=== PATIENT | female | born 1980 | race Caucasian/White ===

== ENCOUNTER → 2017-04-06 | Outpatient (CLI) | payer MEDICARE, BC ==
--- NOTE | 2017-04-07 08:27 | MM ---
Reason for exam: screening (asymptomatic). Baseline mammogram. History: Retro-pectoral saline implants in both breasts, 2007. Taking hormonal contraceptives for 13 years beginning at age 13. Physical Findings: Nurse did not find any significant physical abnormalities on exam. MG 3D Screen Mammo Imp/Cad Bilateral CC, MLO, and ID view(s) were taken. No prior studies available for comparison. The breast tissue is heterogeneously dense. This may lower the sensitivity of mammography. There is no discrete abnormality. Bilateral breast prothesis. These results were verbally communicated with the patient and result sheet given to the patient on 04/06/17. ASSESSMENT: Negative, BI-RAD 1 RECOMMENDATION: Routine screening mammogram of both breasts in 1 year.
== END | disposition home or self-care (01) ==
LOC: RADMAMWWP 12:53
PROVIDERS: ATTEND Obstetrics & Gynecology
DX: Z12.31 Encounter for screening mammogram for malignant neoplasm of breast (principal); Z98.82 Breast implant status
CPT/HCPCS: 77063; G0202

== ENCOUNTER → 2018-07-13 | Outpatient (CLI) | payer MEDICARE, BC ==
--- NOTE | 2018-07-14 13:38 | MM ---
Reason for exam: screening (asymptomatic). Last mammogram was performed 1 year and 3 months ago. History: Retro-pectoral saline implants in both breasts, 2008. Taking hormonal contraceptives for 13 years beginning at age 13. Physical Findings: A clinical breast exam by your physician is recommended on an annual basis and results should be correlated with mammographic findings. MG 3D Screen Mammo Imp/Cad Bilateral CC, MLO, and ID view(s) were taken. Prior study comparison: April 06, 2017, bilateral MG 3d screen mammo imp/cad. July 01, 2007, CAD bilateral diagnostic mammogram. The breast tissue is heterogeneously dense. This may lower the sensitivity of mammography. There is no discrete abnormality. Bilateral subpectoral implants redemonstrated. ASSESSMENT: Benign, BI-RAD 2 RECOMMENDATION: Routine screening mammogram of both breasts in 1 year.
== END ==
LOC: RADMAMWWP 10:10
PROVIDERS: ATTEND Obstetrics & Gynecology
DX: Z12.31 Encounter for screening mammogram for malignant neoplasm of breast (principal)
CPT/HCPCS: 77063; 77067

== ENCOUNTER → 2019-03-29 | Outpatient (CLI) | payer MEDICARE ==
--- NOTE | 2019-03-29 15:08 | MR ---
EXAMINATION TYPE: MR knee RT wo con DATE OF EXAM: 03/29/2019 COMPARISON: Radiographs of the right knee dated 03/21/2019 HISTORY: Rt. knee pain TECHNIQUE: Multiplanar, multisequence imaging of the right knee is performed without IV contrast. FINDINGS: MEDIAL MENISCUS: There is a very small radial tear of the posterior horn of the medial meniscus at it s free edge. Near the medial meniscus is unremarkable. LATERAL MENISCUS: Anterior and posterior horns are intact without tear. CRUCIATE LIGAMENTS: The anterior and posterior cruciate ligaments are intact. There is some increased signal of the insertional distal fibers of the distal biceps femoris. COLLATERAL LIGAMENTS: The medial collateral ligament and lateral collateral ligament complex are inta ct. Very mild increased signal is seen overlying the medial collateral ligament. EXTENSOR MECHANISM: Visualized quadriceps and patellar tendons are intact. EFFUSION: No significant suprapatellar joint effusion. POPLITEAL CYST: No popliteal/rodriguez cyst. TRICOMPARTMENT SPACES: No significant joint space narrowing. CARTILAGE: There is full-thickness cartilaginous loss of the patellar apex focally measuring 9 mm and within the medial facet cartilage as well as subchondral cystic change of the patellar apex extendin g into the lateral facet. Slight heterogeneity of the medial compartment cartilage is seen without fo ivania chondral defect. BONE MARROW SIGNAL: No focal abnormal marrow signal is appreciated. OTHER: Minimal nonspecific fat stranding is seen in the infrapatellar subcutaneous tissues. IMPRESSION: 1. Full-thickness cartilaginous defect of the patellar apex with underlying subchondral cystic format ion and chondral loss of the medial facet of the patella. Very mild chondromalacia of the medial comp artment is also seen without focal defect. 2. Very small radial tear of the posterior horn of the free edge of the medial meniscus. 3. Minimal increased signal of the insertional fibers of the distal biceps femoris May relate to mild tendinosis. 4. Subtle increased signal overlying the medial collateral ligament suggests very mild MCL bursitis.
== END | disposition home or self-care (01) ==
LOC: RADMRIMAIN 12:47
PROVIDERS: ATTEND Orthopaedic Surgery
DX: M94.261 Chondromalacia, right knee (principal); S83.241A Other tear of medial meniscus, current injury, right knee, initial encounter; M94.8X6 Other specified disorders of cartilage, lower leg; M85.661 Other cyst of bone, right lower leg

== ENCOUNTER → 2019-05-03 | Outpatient (CLI) | payer MEDICARE ==
[2019-05-03 12:21] LABS: Basophils % (A) 1 %; Eosinophils # (A) 0.1 k/uL (0-0.7); Eosinophils % (A) 2 %; HCT 37.2 % (34.0-46.0); HGB 12.5 gm/dL (11.4-16.0); Lymphocytes # (A) 1.8 k/uL (1.0-4.8); Lymphocytes % (A) 38 %; MCH 30.2 pg (25.0-35.0); MCHC 33.5 g/dL (31.0-37.0); MCV 90.2 fL (80.0-100.0); Mean Platelet Volume 6.9; Monocytes # (A) 0.3 k/uL (0-1.0); Monocytes % (A) 6 %; Neutrophils # (A) 2.4 k/uL (1.3-7.7); Neutrophils % (A) 51 %; Platelet Count 232 k/uL (150-450); RBC 4.13 m/uL (3.80-5.40); RDW 12.6 % (11.5-15.5); WBC 4.8 k/uL (3.8-10.6)
[2019-05-03 12:28] LABS: Potassium 4.2 mmol/L (3.5-5.1)
== END | disposition home or self-care (01) ==
LOC: LABPAT 11:55
PROVIDERS: ATTEND Orthopaedic Surgery
DX: Z01.812 Encounter for preprocedural laboratory examination (principal); M23.92 Unspecified internal derangement of left knee
CPT/HCPCS: 36415; 80051; 81025; 85025

== ENCOUNTER 2019-05-11 09:15 | Day surgery (SDC) | payer MEDICARE ==
[2019-05-09 13:29] VITALS: BMI 27.1
--- NOTE | 2019-05-10 14:07 | HP ---
HISTORY AND PHYSICAL Surgery is 05/11/2019 Tiffany Andrade is a 39-year-old patient seen with progressive right knee pain. Treatment options discussed. She elected to proceed with right knee arthroscopy. Consent was obtained. PAST MEDICAL HISTORY: Her past medical history is noncontributory. PAST SURGICAL HISTORY: Noncontributory. DAILY MEDICATIONS: None. ALLERGIES: None reported. SOCIAL HISTORY: She denies current tobacco use. PHYSICAL EXAMINATION: Physical evaluation of the right knee: Range of motion is full with +3 to 125 degrees. Mild effusion. Tenderness along the medial joint line. Positive medial Cam's. Ligaments stable. Hip rotation without pain. Distal neurovascular exam intact. Radiographs right knee mild osteoarthritic change. MRI right knee medial meniscal tear, patellar osteoarthritis. IMPRESSION: Internal derangement, right knee with medial meniscal tear. PLAN: Right knee arthroscopy with partial meniscectomy and debridement. MMODL / IJN: [id number] /
[~2019-05-11 09:15] MED LIST: DEXAMETHASONE SOD PHOSPHATE 10 MG/ML 1 ML VIAL IV ONE; HYDROmorphone 0.5 MG/0.5 ML SYRINGE IVP PRN; LACTATED RINGERS 1,000 ML IV SCH; LIDOCAINE 1% 20 ML VIAL (10MG/ML) FOR IV START INTRADERMA PRN; ONDANSETRON 4 MG/2 ML VIAL IVP ONE; SCOPOLAMINE 1.5MG/72HR PATCH TRANSDERM ONE
[2019-05-11] MEDS ORDERED: MIDAZOLAM 2 MG/2 ML VIAL ONE (10:36)
[2019-05-11] MEDS ORDERED: PROPOFOL 10 MG/ML 20 ML VIAL IV ONE (10:36)
[2019-05-11] MEDS ORDERED: SUCCINYLCHOLINE CHLORIDE 100 MG/5 ML SYR IV ONE (10:36)
[2019-05-11] MEDS ORDERED: ePHEDrine SULFATE/0.9% NACL/PF 50 MG/5 ML SYRINGE IV ONE (10:36)
[2019-05-11] MEDS ORDERED: fentaNYL (PF) 50 MCG/ML 2 ML AMP ONE (10:36)
[2019-05-11] MEDS ORDERED: LIDOCAINE 1% INJ 10MG/ML (20 ML MDV) ONE (10:36)
[2019-05-11] MEDS ORDERED: BUPIVACAINE (PF) 0.25% 30 ML VIAL SQ ONE (11:13)
--- NOTE | 2019-05-11 11:30 | P.OP ---
Date of Procedure: 05/11/19 Preoperative Diagnosis: Internal derangement right knee Postoperative Diagnosis: 1. Tear medial meniscus right knee 2. Grade 2 chondromalacia patella right knee 3. Reactive synovitis medial, lateral and suprapatellar compartments right knee Procedure(s) Performed: 1. Arthroscopic partial medial meniscectomy right knee 2. Arthroscopic chondroplasty patella right knee 3. Arthroscopic partial synovectomy medial, lateral and suprapatellar compartments right knee Anesthesia: TAHIRA, local Surgeon: Bernardo Lizama Estimated Blood Loss (ml): 5 Pathology: none sent Condition: stable Disposition: PACU Indications for Procedure: 39-year-old patient seen with progressive right knee after treatment options discussed, she elected to proceed with arthroscopy. Operative Findings: See description of procedure Description of Procedure: Patient was taken to the operative suite. Patient underwent a general anesthetic by the department of anesthesia. Patient was given preoperative antibiotics. The right lower extremity was placed in a well-padded arthroscopic leg dominguez. The right leg was prepped and draped in the normal sterile orthopedic fashion. A lateral parapatellar and suprapatellar incision was made. Trochars were inserted. Arthroscopy was initiated. Suprapatellar pouch revealed diffuse thick reactive synovitis. The patellofemoral joint appeared to articulate congruently. There was grade 2 chondromalacia patella with some diffuse osteochondral tears present. This mainly involving the medial facet.. The scope was guided into the medial gutter. No loose bodies or plica were identified. The scope was then guided into the medial compartment. A medial parapatellar incision was made. Trocar inserted followed by probe. There was a small radial tear posterior medial meniscus. There was very mild grade 1 chondromalacia medial compartment. There was no osteochondral tears present. There was reactive synovitis anteriorly. I performed a partial medial meniscectomy down to stable tissue. I performed a partial synovectomy decompressing the reactive synovitis. The residual meniscus appeared stable. Scope and probe were then guided into the intercondylar notch. Cruciates were identified, probed and found to be stable. The scope and probe were then guided into lateral compartment. Meniscus was probed and found to be stable. There was no chondromalacia present. There was reactive synovitis anteriorly. I performed a partial synovectomy. There was good decompression of synovitis. The scope was in guided back into the suprapatellar compartment. I introduced a motorized shaver into the super patellar compartment. I performed a chondroplasty of patella down to stable tissue. I performed a partial synovectomy. The shaver was removed. The residual osteochondral surface of patella. Stable. There was grade 2/3 chondromalacia but the osteochondral surface was at this point stable. There was good decompression of synovitis. I took one more look on the entire knee, no residual debris. Instruments were now removed from the joint. The joint was infiltrated with .25% Marcaine. Steri- Strips were applied to the portal sites. Sterile dressings were applied. The patient was placed into a GISELA hose. No tourniquet was utilized. The patient was awakened, transferred to a bed and taken to recovery stable satisfactory condition.
[2019-05-11 11:39] VITALS: RESP 16; TEMP 97.3
[2019-05-11 12:35] VITALS: BP 113/73; PULSE 78
== END 2019-05-11 12:43 | disposition home or self-care (01) ==
LOC: OR 09:15
PROVIDERS: ATTEND Orthopaedic Surgery
DX: M23.321 Other meniscus derangements, posterior horn of medial meniscus, right knee (principal); M22.41 Chondromalacia patellae, right knee; M65.861 Other synovitis and tenosynovitis, right lower leg; K21.9 Gastro-esophageal reflux disease without esophagitis
CPT/HCPCS: 81025; 29881; J2250; J1100; J2405; J0690; J2001; J3010; J0330; J2704

== ENCOUNTER → 2019-12-20 | Outpatient (CLI) | payer MEDICARE ==
--- NOTE | 2019-12-21 11:27 | MR ---
EXAMINATION TYPE: MR knee LT wo con DATE OF EXAM: 12/20/2019 COMPARISON: 12/13/2019 HISTORY: 39-year-old female Pain in left knee TECHNIQUE: Multiplanar, multisequence imaging of the left knee is performed without IV contrast. FINDINGS: ACL, PCL, MCL, and LCL complex are intact. Lateral meniscus is intact. There is a multilocular ganglion cyst along the anteromedial aspect of the medial tibial plateau otilia uring 1.1 cm wide by 2.2 cm craniocaudal by 8 mm AP. This is highly suggestive of a parameniscal cyst probably arising from a tiny peripheral tear at the junction of the meniscal body and anterior horn. Bicompartmental articular cartilage volumes are maintained. Mild diffuse thinning of patellar articular cartilage with moderate focal irregular cartilage loss al maral the medial patellar facet and some reactive subchondral signal change. Extensor mechanism is intact. Physiologic joint fluid. No Guidry's cyst. Normal popliteal artery anatomy and muscle bulk. No suspicious bone marrow replacement. IMPRESSION: 1. A 2.2 cm multilocular ganglion cyst along the anteromedial aspect of the tibial plateau. Suspect t hat this represents a parameniscal cyst arising from a tiny peripheral tear at the junction of the an terior horn and body of the medial meniscus. 2. Moderate focal osteoarthritic change along the medial patellar facet.
== END | disposition home or self-care (01) ==
LOC: RADMRIMAIN 14:40
PROVIDERS: ATTEND Orthopaedic Surgery
DX: M17.12 Unilateral primary osteoarthritis, left knee (principal); M67.462 Ganglion, left knee

== ENCOUNTER → 2020-02-29 | Outpatient (CLI) | payer MEDICARE | END | disposition home or self-care (01) | LOC: LABWHC1 07:06 | PROVIDERS: ATTEND Orthopaedic Surgery | DX: Z53.9 Procedure and treatment not carried out, unspecified reason (principal) ==

== ENCOUNTER 2020-03-01 14:28 | Day surgery (SDC) | payer MEDICARE ==
[2020-02-29 10:05] VITALS: BMI 27.3
--- NOTE | 2020-03-01 09:15 | HP ---
HISTORY AND PHYSICAL DATE OF SERVICE: 03/01/2020 Tiffany Andrade is a 39-year-old patient seen with progressive left knee pain. We discussed options for treatment. She elected to proceed with arthroscopy. Consent was obtained. PAST MEDICAL HISTORY: Noncontributory. PAST SURGICAL HISTORY: Right knee arthroscopy. DAILY MEDICATIONS: Multivitamin. ALLERGIES: None. SOCIAL HISTORY: She denies tobacco use. PHYSICAL EVALUATION OF THE LEFT KNEE: Range of motion is 0-130. Mild effusion. Tenderness medial joint line. Positive medial Cam's. Crepitus patellofemoral joint. Ligaments stable. Hip rotation without pain. Distal neurovascular exam is intact. RADIOGRAPHS OF THE LEFT KNEE: Revealed mild osteoarthritis. MRI left knee revealed medial meniscal tear. Parameniscal cyst and osteoarthritis. IMPRESSION: 1. Internal derangement, left knee with medial meniscal tear. 2. Left knee osteoarthritis. PLAN: Left knee arthroscopy with partial meniscectomy and partial synovectomy and debridement. MMODL / IJN: [id number] /
[2020-03-01 15:28] LABS: Basophils # (A) 0.1 k/uL (0-0.2); Basophils % (A) 1 %; Eosinophils # (A) 0.1 k/uL (0-0.7); Eosinophils % (A) 2 %; Lymphocytes % (A) 32 %; MCH 30.2 pg (25.0-35.0); MCHC 33.4 g/dL (31.0-37.0); MCV 90.5 fL (80.0-100.0); Mean Platelet Volume 6.9; Monocytes # (A) 0.2 k/uL (0-1.0); Monocytes % (A) 3 %; Neutrophils # (A) 3.7 k/uL (1.3-7.7); Neutrophils % (A) 60 %; Platelet Count 246 k/uL (150-450); RBC 4.31 m/uL (3.80-5.40); RDW 12.2 % (11.5-15.5); WBC 6.2 k/uL (3.8-10.6)
[2020-03-01] MEDS ORDERED: LACTATED RINGERS 1,000 ML IV ONE (15:36)
[2020-03-01 15:37] LABS: African American GFR (CKD) >90 (>60 ml/min/1.73 sqM); Anion Gap 9 mmol/L; Blood Urea Nitrogen 16 mg/dL (7-17); Calcium 9.7 mg/dL (8.4-10.2); Carbon Dioxide 23 mmol/L (22-30); Chloride 106 mmol/L (98-107); Glucose 86 mg/dL (74-99); Non-African American GFR(CKD) >90 (>60 ml/min/1.73 sqM); Potassium 3.9 mmol/L (3.5-5.1); Sodium 138 mmol/L (137-145)
[2020-03-01] MEDS ORDERED: DEXAMETHASONE SOD PHOS (MDV) 100 MG/10 ML VIAL IVP ONE (15:37)
[2020-03-01] MEDS ORDERED: ONDANSETRON 4 MG/2 ML VIAL IVP ONE (15:37)
[2020-03-01] MEDS ORDERED: SUCCINYLCHOLINE CHLORIDE 100 MG/5 ML SYR IV ONE (17:12)
[2020-03-01] MEDS ORDERED: PROPOFOL 10 MG/ML 20 ML VIAL IV ONE (17:12)
[2020-03-01] MEDS ORDERED: fentaNYL (PF) 50 MCG/ML 2 ML AMP ONE (17:12)
[2020-03-01] MEDS ORDERED: MIDAZOLAM 2 MG/2 ML VIAL ONE (17:12)
[2020-03-01] MEDS ORDERED: LIDOCAINE 1% INJ 10MG/ML (20 ML MDV) ONE (17:12)
[2020-03-01] MEDS ORDERED: BUPIVACAIN-EPI 0.25%-1:200,000 30 ML VIAL SQ ONE ×2 (17:24)
--- NOTE | 2020-03-01 18:01 | P.OP ---
Date of Procedure: 03/01/20 Preoperative Diagnosis: Internal derangement left knee Postoperative Diagnosis: 1. Tear lateral meniscus left knee 2. Grade 2 chondromalacia patella left knee 3. Reactive synovitis medial, lateral and suprapatellar compartments left knee Procedure(s) Performed: 1. Arthroscopic partial lateral meniscectomy left knee 2. Arthroscopic chondroplasty patella left knee 3. Arthroscopic partial synovectomy medial, lateral and suprapatellar compartments left knee Anesthesia: JOAN, local Surgeon: Bernardo Lizama Principle Software Engineer #1: Ramón Tavares Estimated Blood Loss (ml): 4 Pathology: none sent Condition: stable Disposition: PACU Indications for Procedure: 39-year-old patient seen with progressive left knee pain. After treatment options were discussed, she elected to proceed with arthroscopy. Operative Findings: See description of procedure Description of Procedure: Patient was taken to the operative suite. Patient underwent a general anesthetic by the department of anesthesia. Patient was given preoperative antibiotics. The left lower extremity was placed in a well-padded arthroscopic leg dominguez. The left leg was prepped and draped in the normal sterile orthopedic fashion. A lateral parapatellar and suprapatellar incision was made. Trochars were inserted. Arthroscopy was initiated. Suprapatellar pouch revealed diffuse thick reactive synovitis. The patellofemoral joint appeared to articulate congruently. There was grade 2 chondromalacia patella with diffuse osteochondral tears present. The scope was guided into the medial gutter. No loose bodies or plica were identified. The scope was then guided into the medial compartment. A medial parapatellar incision was made. Trocar inserted followed by probe. The medial meniscus was probed and found to be stable. Ther e was no significant chondromalacia involving medial compartment. There was some thick reactive synovitis anteriorly. I introduced a motorized shaver and performed a partial synovectomy. There was good decompression of synovitis. Scope and probe were then guided into the intercondylar notch. Cruciates were identified, probed and found to be table. The scope and probe were then guided into lateral compartment. The was a small radial tear involving the midbody lateral meniscus. There was no smoking chondromalacia lateral compartment. There was thick reactive synovitis anteriorly. I performed a partial lateral meniscectomy. I performed a partial synovectomy. There was good decompression of the synovitis. The scope was in guided back into the suprapatellar compartment. I introduced the motorized shaver into the super compartment. I performed a chondroplasty of the patella getting down to stable osteochondral tissue. I performed a partial synovectomy decompressing the thick reactive synovitis. The shaver was removed. I reintroduced the probe. I probed the patella and the residual osteochondral surface was stable. The probe was removed. I took one more look on the entire knee, no residual debris. Instruments were now removed from the joint. The joint was infiltrated with .25% Marcaine. Steri-Strips were applied to the portal sites. Sterile dressings were applied. The patient was placed into a GISELA hose. No tourniquet was utilized. The patient was awakened, transferred to a bed and taken to recovery stable satisfactory condition.
[2020-03-01 18:15] VITALS: TEMP 98
[2020-03-01 18:26] VITALS: RESP 18
[2020-03-01] MEDS ORDERED: KETOROLAC 30 MG/ML 1 ML VIAL IVP ONE (18:32)
[2020-03-01 19:02] VITALS: BP 128/74; PULSE 81
== END 2020-03-01 19:14 | disposition home or self-care (01) ==
LOC: OR 14:28
PROVIDERS: ATTEND Orthopaedic Surgery
DX: S83.242A Other tear of medial meniscus, current injury, left knee, initial encounter (principal); X58.XXXA Exposure to other specified factors, initial encounter; M22.42 Chondromalacia patellae, left knee; M65.862 Other synovitis and tenosynovitis, left lower leg; M17.12 Unilateral primary osteoarthritis, left knee; K21.9 Gastro-esophageal reflux disease without esophagitis; Z79.1 Long term (current) use of non-steroidal anti-inflammatories (NSAID); Z88.5 Allergy status to narcotic agent
CPT/HCPCS: 29881; 29876; 80048; 85025; 87635; J2405; J1885; J1100

== ENCOUNTER → 2020-05-14 | Outpatient (CLI) | payer MEDICARE ==
--- NOTE | 2020-05-15 09:57 | MM ---
Reason for exam: screening (asymptomatic). Last mammogram was performed 1 year and 10 months ago. History: Retro-pectoral saline implants in both breasts, 2008. Took hormonal contraceptives for 13 years beginning at age 13. Physical Findings: A clinical breast exam by your physician is recommended on an annual basis and results should be correlated with mammographic findings. MG 3D Screen Mammo Imp/Cad Bilateral CC, MLO, and ID view(s) were taken. Prior study comparison: July 13, 2018, bilateral MG 3d screen mammo imp/cad. April 06, 2017, bilateral MG 3d screen mammo imp/cad. The breast tissue is heterogeneously dense. This may lower the sensitivity of mammography. No significant changes when compared with prior studies. ASSESSMENT: Benign, BI-RAD 2 RECOMMENDATION: Routine screening mammogram of both breasts in 1 year.
== END | disposition home or self-care (01) ==
LOC: RADMAMWWP 13:40
PROVIDERS: ATTEND Obstetrics & Gynecology
DX: Z12.31 Encounter for screening mammogram for malignant neoplasm of breast (principal)
CPT/HCPCS: 77063; 77067

== ENCOUNTER → 2020-08-22 | Outpatient (CLI) | payer MEDICARE ==
--- NOTE | 2020-08-25 15:26 | MR ---
EXAMINATION TYPE: MR knee LT wo con DATE OF EXAM: 08/22/2020 COMPARISON: Prior MRI December 20, 2019 HISTORY: Left knee pain, menisectomy February 2020. TECHNIQUE: Multiplanar, multisequence imaging of the left knee is performed without IV contrast. FINDINGS: MEDIAL MENISCUS: Anterior and posterior horns are intact without tear. Interval surgical removal of t he parameniscal cyst aligned medial aspect of the meniscus on prior study. LATERAL MENISCUS: Anterior and posterior horns are intact without tear. CRUCIATE LIGAMENTS: Posterior cruciate ligament remains intact and unremarkable. Anterior cruciate li gament shows new increased signal and partial tearing midsubstance. COLLATERAL LIGAMENTS: The medial collateral ligament and lateral collateral ligament complex are inta ct and unremarkable. EXTENSOR MECHANISM: Visualized quadriceps and patellar tendons are intact. EFFUSION: Small suprapatellar joint effusion larger from prior.. POPLITEAL CYST: No popliteal/rodriguez cyst. TRICOMPARTMENT SPACES: Mild to moderate narrowing patellofemoral compartment. No significant spurring . CARTILAGE: Stable mild fissuring and cartilaginous loss posterior patellar pole greatest medial infer ior aspect. BONE MARROW SIGNAL: No focal abnormal marrow signal is appreciated. OTHER: No additional significant abnormality is appreciated. IMPRESSION: Interval successful resection of parameniscal cyst, no new meniscal tear identified. Ther e is new partial oblique tear of the anterior cruciate ligament without full-thickness tear. Stable m ild to moderate patellofemoral joint arthropathy. Small suprapatellar joint effusion slightly larger from prior.
== END | disposition home or self-care (01) ==
LOC: RADMRIMAIN 13:17
PROVIDERS: ATTEND Orthopaedic Surgery
DX: M25.862 Other specified joint disorders, left knee (principal); S83.512A Sprain of anterior cruciate ligament of left knee, initial encounter; M12.862 Other specific arthropathies, not elsewhere classified, left knee; M25.462 Effusion, left knee

== ENCOUNTER → 2020-10-16 | Outpatient (CLI) | payer MEDICARE | END | disposition home or self-care (01) | DX: Z53.9 Procedure and treatment not carried out, unspecified reason (principal) ==

== ENCOUNTER → 2020-10-16 | Outpatient (CLI) | payer MEDICARE ==
[2020-10-16 09:09] LABS: Appearance,Urine Clear (Clear); Bilirubin,Urine Negative (Negative); Blood,Urine Negative (Negative); Color,Urine Light Yellow; Glucose,Urine (UA) Negative (Negative); Ketones,Urine Negative (Negative); Leukocyte Esterase,Urine Negative (Negative); Nitrite,Urine Negative (Negative); PH, Urine 5.5 (5.0-8.0); Protein,Urine Negative (Negative); Urobilinogen,Urine <2.0 mg/dL (<2.0)
[2020-10-16 09:10] LABS: Basophils % (A) 1 %; Eosinophils # (A) 0.1 k/uL (0-0.7); Eosinophils % (A) 2 %; HGB 12.4 gm/dL (11.4-16.0); Lymphocytes # (A) 1.9 k/uL (1.0-4.8); Lymphocytes % (A) 35 %; MCH 31.2 pg (25.0-35.0); MCHC 34.5 g/dL (31.0-37.0); MCV 90.4 fL (80.0-100.0); Monocytes # (A) 0.3 k/uL (0-1.0); Monocytes % (A) 5 %; Neutrophils # (A) 3.1 k/uL (1.3-7.7); Neutrophils % (A) 57 %; Platelet Count 234 k/uL (150-450); RBC 3.99 m/uL (3.80-5.40); RDW 12.7 % (11.5-15.5); WBC 5.4 k/uL (3.8-10.6)
[2020-10-16 15:04] LABS: Prolactin 10.3 ng/mL (2.8-29.2)
[2020-10-16 15:05] LABS: Estradiol 175.9 pg/mL; Follicle Stimulating Hormone 27.4 mIU/mL; Luteinizing Hormone 32.3 mIU/mL
[2020-10-16 15:11] LABS: HCG,Quantitative Serum <2.0 mIU/mL
[2020-10-16 15:13] LABS: African American GFR (CKD) 123.9 (60.0-200.0); Albumin 4.4 g/dL (3.80-4.90); Albumin/Globulin Ratio 2.2 (1.60-3.17); Anion Gap 6.2 mmol/L (4.00-12.00); BUN/Creat Ratio 22.86 Ratio (12.00-20.00); Calcium 9.2 mg/dL (8.7-10.3); Carbon Dioxide 28.8 mmol/L (21.6-31.8); Non-African American GFR(CKD) 106.9 (60.0-200.0); Potassium 4.1 mmol/L (3.5-5.5); Total Bilirubin 0.7 mg/dL (0.2-1.2); Total Protein 6.4 g/dL (6.2-8.2)
[2020-10-16 17:25] LABS: Hemoglobin A1C 4.7 % (4.0-6.0)
[2020-10-16 19:23] LABS: EBV-EA (IgG) <0.2 AI; EBV-EBNA(IgG) 1.1 AI; EBV-VCA (IgG) >8.0 AI; EBV-VCA (IgM) >4.0 AI
== END | disposition home or self-care (01) ==
LOC: LABWHC1 07:59
PROVIDERS: ATTEND Obstetrics & Gynecology
DX: Z00.00 Encounter for general adult medical examination without abnormal findings (principal); R53.83 Other fatigue; R73.9 Hyperglycemia, unspecified; G43.909 Migraine, unspecified, not intractable, without status migrainosus; N91.2 Amenorrhea, unspecified
CPT/HCPCS: 36415; 80053; 81003; 82670; 83001; 83002; 83036; 84146; 84439; 84443; 84479; 84702; 85025; 86663; 86664; 86665

== ENCOUNTER → 2020-10-31 | Day surgery (SDC) | payer MEDICARE ==
[2020-10-24 10:15] VITALS: BMI 28.1
--- NOTE | 2020-10-30 14:26 | HP ---
HISTORY AND PHYSICAL Surgery is scheduled for 10/31/2020. Tiffany Andrade is a 40-year-old patient seen with progressive left knee pain. We discussed options with her. She elected to proceed with arthroscopy. Consent was obtained. PAST MEDICAL HISTORY: Noncontributory. PAST SURGICAL HISTORY: Bilateral knee arthroscopy. DAILY MEDICATIONS: Multivitamin. ALLERGIES: None. SOCIAL HISTORY: She denies tobacco use. PHYSICAL EXAMINATION: Physical evaluation of the left knee: Range of motion is 0-130. She has some tenderness along the lateral patellar facet, medial patellar facet. Plus one Kurt with good endpoint. Patellar crepitus with range of motion. Some pain with patellofemoral compression. Ligaments stable. Hip rotation without pain. Distal neurovascular exam intact. Radiographs of the left knee revealed no osseous abnormality. MRI of the left knee revealed a partial ACL tear as well as mild to moderate patellofemoral compartment osteoarthritis. IMPRESSION: Internal derangement left knee with probable osteochondral tear and partial ACL tear. PLAN: Left knee arthroscopy with debridement, partial ACL tear and probable chondroplasty. MMODL / IJN: [id number] /
[~2020-10-31] MED LIST changes: +BUPIVACAINE (PF) 0.25% 30 ML VIAL INTRAARTIC ONE; -DEXAMETHASONE SOD PHOSPHATE 10 MG/ML 1 ML VIAL IV ONE; +DEXAMETHASONE SOD PHOSPHATE 10 MG/ML 1 ML VIAL ONE; +DEXAMETHASONE SOD PHOSPHATE 4 MG/ML 1 ML VIAL IVP ONE; +FAMOTIDINE 20 MG/2 ML VIAL IVP ONE; +GLYCOPYRROLATE 0.2 MG/ML 2 ML VIAL ONE; +HYDROcodone/APAP 5-325MG 1 EACH TAB ONE; +HYDROcodone/APAP 5-325MG 1 EACH TAB PO ONE; +KETOROLAC 15 MG/ML 1 ML VIAL ONE; +LACTATED RINGERS 1,000 ML IV ONE; -LIDOCAINE 1% 20 ML VIAL (10MG/ML) FOR IV START INTRADERMA PRN; +LIDOCAINE 1% INJ 10MG/ML (20 ML MDV) ONE; +MIDAZOLAM 2 MG/2 ML VIAL ONE; +NEOSTIGMINE 1 MG/ML 10 ML VIAL ONE; +PROPOFOL 10 MG/ML 20 ML VIAL IV ONE; +ROCURONIUM 10 MG/ML (10 ML VIAL) IV ONE; -SCOPOLAMINE 1.5MG/72HR PATCH TRANSDERM ONE; +SUCCINYLCHOLINE CHLORIDE 100 MG/5 ML SYR IV ONE; +fentaNYL (PF) 50 MCG/ML 2 ML AMP IV PRN; +fentaNYL (PF) 50 MCG/ML 2 ML AMP ONE
[2020-10-31 09:48] VITALS: TEMP 97.1
--- NOTE | 2020-10-31 10:53 | P.OP ---
Date of Procedure: 10/31/20 Preoperative Diagnosis: Internal derangement left knee Postoperative Diagnosis: 1. Tear lateral meniscus left knee 2. Partial ACL tear left knee 3. Grade 2/3 chondromalacia patella left knee 4. Reactive synovitis lateral and suprapatellar compartments left knee Procedure(s) Performed: 1. Arthroscopic partial lateral meniscectomy left knee 2. Arthroscopic debridement partial ACL tear left knee 3. Arthroscopic chondroplasty patella left knee 4. Arthroscopic partial synovectomy lateral and suprapatellar compartments left knee Anesthesia: TAHIRA, local Surgeon: Bernardo Lizama Estimated Blood Loss (ml): 5 Pathology: none sent Condition: stable Disposition: PACU Indications for Procedure: 40-year-old patient seen with progressive left knee pain. After treatment options were discussed with her, she elected to proceed with arthroscopy. Operative Findings: See description of procedure Description of Procedure: Patient was taken to the operative suite. Patient underwent a general anesthetic by the department of anesthesia. Patient was given preoperative antibiotics. The left lower extremity was placed in a well-padded arthroscopic leg dominguez. The left leg was prepped and draped in the normal sterile ort hopedic fashion. A lateral parapatellar and suprapatellar incision was made. Trochars were inserted. Arthroscopy was initiated. Suprapatellar pouch reveals some diffuse reactive synovitis. The patellofemoral joint appeared to articulate congruently. There was grade 2/3 chondromalacia patella with small osteochondral flap tear involving the lateral facet. The scope was guided into the medial gutter. No loose bodies or plica were identified The scope was then guided into the medial compartment. A medial parapatellar incision was made. Trocar inserted followed by probe. The medial meniscus was probed and found to be stable. There was no significant chondromalacia involving the medial compartment. There was no reactive synovitis. Scope and probe were then guided into the intercondylar notch. Cruciates were identified, there appeared be some superficial tearing along the anterior fibers of the anterior cruciate ligament involving maybe 10-15% of the ligament itself. I introduced a motorized shaver and debrided that out. The residual ACL was stable. I took the knee through range of motion and it was no impingement with a stable appearing anterior cruciate ligament and good intraoperative stability.. The scope and probe were then guided into lateral compartment. As a very subtle mild tear involving the posterior medial corner of the lateral meniscus. There was thick reactive synovitis anteriorly. There was no significant chondromalacia noted. I performed a partial lateral meniscectomy debriding out that subtle tear. I performed a partial synovectomy decompressing the synovitis. The meniscus was probed and found to be stable. There was good decompression of synovitis. The scope was in guided back into the suprapatellar compartment. I introduced a motorized shaver into the suprapatellar compartment area, I performed a chondroplasty of the patella getting down to stable osteochondral tissue. I performed a partial synovectomy decompressing the re active synovitis. The shaver was removed. I probed out the patella and there was good residual osteochondral surface present again we noted grade 2/3 chondromalacia. There was good decompression of the synovitis. I took one more look around the entire knee, no residual debris. Instruments were now removed from the joint. The joint was infiltrated with .25% Marcaine. Steri-Strips were applied to the portal sites. Sterile dressings were applied. The patient was placed into a GISELA hose. No tourniquet was utilized. The patient was awakened, transferred to a bed and taken to recovery stable satisfactory condition.
[2020-10-31 12:27] VITALS: BP 108/64; PULSE 75; RESP 17
== END | disposition home or self-care (01) ==
LOC: OR 09:27
PROVIDERS: ATTEND Orthopaedic Surgery
DX: M23.201 Derangement of unspecified lateral meniscus due to old tear or injury, left knee (principal); S83.512A Sprain of anterior cruciate ligament of left knee, initial encounter; X58.XXXA Exposure to other specified factors, initial encounter; M22.42 Chondromalacia patellae, left knee; M65.862 Other synovitis and tenosynovitis, left lower leg; Z88.5 Allergy status to narcotic agent; K21.9 Gastro-esophageal reflux disease without esophagitis; Z79.1 Long term (current) use of non-steroidal anti-inflammatories (NSAID); Z98.890 Other specified postprocedural states
CPT/HCPCS: 81025; 29881; J2250; J1100 ×2; J2710; J0690; J2405; J2001; J3010; J1885; J0330; J2704

== ENCOUNTER → 2021-10-29 | Outpatient (CLI) | payer MEDICARE ==
--- NOTE | 2021-10-30 10:58 | MM ---
Reason for exam: screening (asymptomatic). Last mammogram was performed 1 year and 5 months ago. History: Retro-pectoral saline implants in both breasts, 2008. Took hormonal contraceptives for 13 years beginning at age 13. Physical Findings: A clinical breast exam by your physician is recommended on an annual basis and results should be correlated with mammographic findings. MG 3D Screen Mammo Imp/Cad Bilateral CC, MLO, and ID view(s) were taken. Prior study comparison: May 14, 2020, bilateral MG 3d screen mammo imp/cad. July 13, 2018, bilateral MG 3d screen mammo imp/cad. The breast tissue is heterogeneously dense. This may lower the sensitivity of mammography. Finding: There is a 12 mm obscured oval mass in the middle position of the right breast on CC view and additional densities right MLO view. There is no discrete abnormality on the left. Implant displaced views. Bilateral subpectoral implants redemonstrated. ASSESSMENT: Incomplete: need additional imaging evaluation, BI-RAD 0 RECOMMENDATION: Ultrasound of the right breast. [facility] will attempt to contact patient to return for ultrasound.
== END | disposition home or self-care (01) ==
LOC: RADMAMWWP 11:09
PROVIDERS: ATTEND Obstetrics & Gynecology
DX: Z12.31 Encounter for screening mammogram for malignant neoplasm of breast (principal)
CPT/HCPCS: 77063; 77067

== ENCOUNTER → 2022-04-14 | Outpatient (CLI) | payer MEDICARE ==
--- NOTE | 2022-04-15 08:33 | MM ---
Reason for Exam: Follow-up at short interval from prior study. Last screening mammogram was performed 5 month(s) ago. Patient History: Menarche at age 11. First Full-Term at age 16. Hormonal Contraceptives for 13 years from age 13 until age 27. 2008, Bilateral Implants. Last menstrual period: 02/07/2022 Risk Values: Dorothy 5 year model risk: 0.5%. NCI Lifetime model risk: 7.1%. Prior Study Comparison: 07/13/2018 Bilateral Screening Mammogram, [facility]. 05/14/2020 Bilateral Screening Mammogram, [facility]. 10/29/2021 Bilateral Screening Mammogram, [facility]. Tissue Density: Right: The breast tissue is heterogeneously dense. This may lower the sensitivity of mammography. Findings: Mammogram No solid or cystic masses seen. There is no evidence of suspicious calcifications.. Previous ultrasound has been ordered by the referring clinician. Technique: Method: Targeted. Findings: The axilla of the right breast and the retroareolar of the right breast were scanned. There is a 4 mm anechoic lesion well-circumscribed at the 5:00 position of the right breast and there is a 5 mm anechoic lesion at the 10:00 position of the right breast. Overall Assessment: Benign, BI-RAD 2 Assessment: MG 3D diag mammo imp w/cad RT - Right: Incomplete: need additional imaging evaluation, BI-RAD 0. US breast limited RT - Right: Benign, BI-RAD 2. Management: Screening Mammogram of both breasts in 6 months. A clinical breast exam by your physician is recommended on an annual basis and results should be correlated with mammographic findings. Results were given to the patient verbally at the time of exam. Electronically signed and approved by: Nicolas Christianson M.D. Radiologis
== END | disposition home or self-care (01) ==
LOC: RADMAMWWP 14:11
PROVIDERS: ATTEND Obstetrics & Gynecology
DX: R92.8 Other abnormal and inconclusive findings on diagnostic imaging of breast (principal)
CPT/HCPCS: 77065; 76642; G0279; 77061

== ENCOUNTER → 2022-04-23 | Outpatient (CLI) | payer MEDICARE ==
--- NOTE | 2022-04-24 07:45 | CT ---
EXAMINATION TYPE: CT brain wo con DATE OF EXAM: 04/23/2022 COMPARISON: None INDICATION: family h/o brain aneurysm, history of migraines DLP: 978.2 mGycm, Automated exposure control for dose reduction was used. CONTRAST: None CT of the brain is performed utilizing 3 mm thick sections through the posterior fossa and 3 mm thick sections through the remaining calvarium. Study is performed within 24 hours of arrival to the hosp [facility]. No abnormal hyperdensity is present to suggest an acute intracranial hemorrhage. No mass lesion is evident. No acute infarcts are evident. Ventricles and sulci are appropriate for the patient age. Paranasal sinuses and mastoid air cells within the [id number] are clear. IMPRESSIONS: 1. No acute intracranial process. 2. MRI is recommended for additional evaluation of the brain symptoms. MRA of the [place] uld be performed for better evaluation of aneurysm.
== END | disposition home or self-care (01) ==
LOC: RADCTMAIN 17:14
PROVIDERS: ATTEND Family Medicine
DX: G43.909 Migraine, unspecified, not intractable, without status migrainosus (principal); Z82.49 Family history of ischemic heart disease and other diseases of the circulatory system
CPT/HCPCS: 70450

== ENCOUNTER → 2022-11-16 | Outpatient (CLI) | payer MEDICARE ==
--- NOTE | 2022-11-16 08:22 | MM ---
Reason for Exam: Additional evaluation requested from prior study. Last screening mammogram was performed 12 month(s) ago. Patient History: Menarche at age 11. First Full-Term at age 16. Hormonal Contraceptives for 25 years from age 13 until age 38. 2008, Bilateral Implants. Risk Values: Dorothy 5 year model risk: 0.6%. NCI Lifetime model risk: 7.1%. Prior Study Comparison: 07/01/2007 Bilateral Diagnostic Mammogram, [facility]. 07/01/2007 Left Diagnostic Ultrasound, [facility]. 04/06/2017 Bilateral Screening Mammogram, [facility]. 07/13/2018 Bilateral Screening Mammogram, [facility]. 05/14/2020 Bilateral Screening Mammogram, [facility]. 10/29/2021 Bilateral Screening Mammogram, [facility]. 11/03/2021 Right Diagnostic Ultrasound, [facility]. 04/14/2022 Right MG 3D diag mammo imp w/cad RT, [facility]. 04/14/2022 Right US breast limited RT, [facility]. Tissue Density: The breast tissue is heterogeneously dense. This may lower the sensitivity of mammography. Findings: Bilateral subpectoral breast implants are redemonstrated. No suspicious new mass or distortion in either breast. Overall Assessment: Benign, BI-RAD 2 Management: Screening Mammogram of both breasts in 1 year. A clinical breast exam by your physician is recommended on an annual basis and results should be correlated with mammographic findings. This exam should not preclude additional follow-up of suspicious palpable abnormalities. Results were given to the patient verbally at the time of exam. Electronically signed and approved by: Sherwin Trejo M.D.
--- NOTE | 2022-11-16 08:46 | USB ---
Reason for Exam: Follow-up at short interval from prior study. Patient History: Menarche at age 11. First Full-Term at age 16. Hormonal Contraceptives for 25 years from age 13 until age 38. 2008, Bilateral Implants. Risk Values: Dorothy 5 year model risk: 0.6%. NCI Lifetime model risk: 7.1%. Prior Study Comparison: 05/14/2020 Bilateral Screening Mammogram, [facility]. 10/29/2021 Bilateral Screening Mammogram, [facility]. 04/14/2022 Right MG 3D diag mammo imp w/cad RT, [facility]. Findings: Targeted ultrasound redemonstrates a 4 x 3 mm simple appearing cyst deep in the right breast at 5:00 position 2 cm distance from nipple adjacent to outer margin of the implant. At 10:00 position there is a 5 x 3 x 5 mm oval anechoic lesion with increased through transmission favoring benign thin-walled cyst redemonstrated. No new or enlarging lesions are seen. Overall Assessment: Benign, BI-RAD 2 Management: Screening Mammogram of both breasts in 1 year. Return to routine follow-up. Results were given to the patient verbally at the time of exam. Electronically signed and approved by: Sherwin Trejo M.D.
== END | disposition home or self-care (01) ==
LOC: RADMAMWWP 07:43
PROVIDERS: ATTEND Obstetrics & Gynecology
DX: R92.8 Other abnormal and inconclusive findings on diagnostic imaging of breast (principal)
CPT/HCPCS: 77066; 76642; G0279; 77062

== ENCOUNTER 2023-02-16 08:31 | Day surgery (SDC) | payer MEDICARE ==
[2023-02-11 10:53] VITALS: BMI 26.8
[~2023-02-16 08:31] MED LIST changes: -BUPIVACAINE (PF) 0.25% 30 ML VIAL INTRAARTIC ONE; -DEXAMETHASONE SOD PHOSPHATE 10 MG/ML 1 ML VIAL ONE; -DEXAMETHASONE SOD PHOSPHATE 4 MG/ML 1 ML VIAL IVP ONE; -FAMOTIDINE 20 MG/2 ML VIAL IVP ONE; -GLYCOPYRROLATE 0.2 MG/ML 2 ML VIAL ONE; -HYDROcodone/APAP 5-325MG 1 EACH TAB ONE; -HYDROcodone/APAP 5-325MG 1 EACH TAB PO ONE; -HYDROmorphone 0.5 MG/0.5 ML SYRINGE IVP PRN; -KETOROLAC 15 MG/ML 1 ML VIAL ONE; -LACTATED RINGERS 1,000 ML IV ONE; -LIDOCAINE 1% INJ 10MG/ML (20 ML MDV) ONE; -MIDAZOLAM 2 MG/2 ML VIAL ONE; -NEOSTIGMINE 1 MG/ML 10 ML VIAL ONE; -ONDANSETRON 4 MG/2 ML VIAL IVP ONE; -PROPOFOL 10 MG/ML 20 ML VIAL IV ONE; -ROCURONIUM 10 MG/ML (10 ML VIAL) IV ONE; -SUCCINYLCHOLINE CHLORIDE 100 MG/5 ML SYR IV ONE; -fentaNYL (PF) 50 MCG/ML 2 ML AMP IV PRN; -fentaNYL (PF) 50 MCG/ML 2 ML AMP ONE
[2023-02-16 08:45] VITALS: TEMP 97.9
[2023-02-16] MEDS ORDERED: LIDOCAINE 1% (10MG/ML) FOR IV START INTRADERMA ONE (09:00)
[2023-02-16] MEDS ORDERED: PROPOFOL 10 MG/ML 20 ML VIAL IV ONE (09:22)
[2023-02-16] MEDS ORDERED: LIDOCAINE 2% INJ 20 MG/ML (2 ML VIAL) ONE (09:22)
--- NOTE | 2023-02-16 09:26 | P.GSHP ---
History of Present Illness H&P Date: 02/16/23 Chief Complaint: colon cancer screening 42-year-old female here today for colonoscopy. Patient with family history of colon polyps she believes in her mother. Possible colon cancer in her grandfather. No bowel complaints at this time. She has not had a colonoscopy previously. Past Medical History Additional Past Medical History / Comment(s): CHANGE IN BOWEL HABITS-FAMILY HX OF COLON POLYPS History of Any Multi-Drug Resistant Organisms: None Reported Past Surgical History: Breast Surgery Additional Past Surgical History / Comment(s): BILAT BREAST IMPLANTS WITH REVISION, BILAT KNEE SX X 3, Past Anesthesia/Blood Transfusion Reactions: No Reported Reaction Smoking Status: Never smoker - Past Family History Mother Family Medical History: No Reported History Medications and Allergies Home Medications Medication Instructions Recorded Confirmed Type Ibuprofen [Motrin Ib] 400 mg PO BID PRN 05/09/19 02/11/23 History Multivitamins, Thera [Multivitamin 1 tab PO DAILY 05/09/19 02/11/23 History (formulary)] Calcium Carbonate [Tums] 500 mg PO DIRECTED PRN 02/29/20 02/11/23 History Biotin 10,000 mcg PO DAILY 10/24/20 10/24/20 History Melatonin [Melatonin Dissolving 10 mg PO HS 10/24/20 02/11/23 History Tablet] Tinnie-3 Fatty Acids/Fish Oil [Fish 227 mg PO DAILY 10/24/20 10/24/20 History Oil 1,000 mg Softgel] Allergies Allergy/AdvReac Type Severity Reaction Status Date / Time hydromorphone [From Dilaudid] Allergy Unknown PT STATES Verified 02/16/23 08:46 FAMILY HX OF REACTION . tramadol [From Ultracet] Allergy Nausea & Verified 02/16/23 08:46 Vomiting Surgical - Exam Vital Signs Temp Pulse Resp BP Pulse Ox 97.9 F 74 16 132/78 98 02/16/23 08:43 02/16/23 08:43 02/16/23 08:43 02/16/23 08:43 02/16/23 08:43 Physical exam: General: Well-developed, well-nourished HEENT: Normocephalic, sclerae nonicteric Abdomen: Nontender, nondistended Extremities: No edema Neuro: Alert and oriented Assessment and Plan (1) Colon cancer screening Narrative/Plan: Will proceed with colonoscopy at this time. Current Visit: Yes Status: Acute Code(s): Z12.11 - ENCOUNTER FOR SCREENING FOR MALIGNANT NEOPLASM OF COLON SNOMED Code(s): 420574906
--- NOTE | 2023-02-16 09:38 | P.PCN ---
Date of Procedure: 02/16/23 Procedure(s) Performed: PREOPERATIVE DIAGNOSIS: Colon cancer screening POSTOPERATIVE DIAGNOSIS: Small rectal polyp PROCEDURE: Colonoscopy with snare polypectomy ANESTHESIA: MAC SURGEON: Roge Mittal M.D. SPECIMENS: Rectal polyp ENDOSCOPIC PROCEDURE: The patient was placed on the endoscopy table in the left decubitus position. The Olympus colonoscope was inserted into the anus and passed under direct visualization to the base of the cecum. The appendiceal orifice was visualized. From that point the scope was slowly withdrawn inspecting all surfaces carefully. There were no neoplastic inflammatory or polypoid lesions throughout the cecum, ascending, transverse, descending, and sigmoid colon. In the rectum there was a very small 3-4 mm polyp that appeared hyperplastic. This was removed with the snare technique. No visible polypoid tissue was seen in the specimen container. Digital rectal examination was normal. The patient was taken to the recovery room in stable condition per anesthesia guidelines. RECOMMENDATIONS: Resume diet. Filter from suction container is being evaluated. If no specimen found recommend repeat colonoscopy 7 years.
[2023-02-16 09:58] VITALS: BP 105/74; PULSE 68; RESP 18
== END 2023-02-16 10:44 | disposition home or self-care (01) ==
LOC: ORWHC2ENDO 08:31
PROVIDERS: ATTEND Surgery
DX: Z12.11 Encounter for screening for malignant neoplasm of colon (principal); Z83.71 Family history of colonic polyps; Z98.890 Other specified postprocedural states; Z79.1 Long term (current) use of non-steroidal anti-inflammatories (NSAID); Z79.899 Other long term (current) drug therapy; Z88.8 Allergy status to other drugs, medicaments and biological substances
CPT/HCPCS: 88300; 45385; J2704; J2001

== ENCOUNTER → 2023-12-29 | Outpatient (CLI) | payer MEDICARE ==
--- NOTE | 2023-12-30 10:15 | MM ---
Reason for Exam: Screening (asymptomatic). Last mammogram was performed 1 year(s) and 2 month(s) ago. Patient History: Menarche at age 11. First Full-Term at age 16. Hormonal Contraceptives for 25 years from age 13 until age 38. 2008, Bilateral Implants. Risk Values: Dorothy 5 year model risk: 0.6%. NCI Lifetime model risk: 7.0%. Prior Study Comparison: 10/29/2021 Bilateral Screening Mammogram, [facility]. 04/14/2022 Right MG 3D diag mammo imp w/cad RT, [facility]. 11/16/2022 Bilateral MG 3D diag mammo imp w/cad JULIETH, [facility]. Tissue Density: The breasts are heterogeneously dense, which may obscure small masses. Findings: Analyzed By CAD. There is no suspicious group of microcalcifications or new suspicious mass in either breast. Implants are intact. Overall Assessment: Benign, BI-RAD 2 Management: Screening Mammogram of both breasts in 1 year. . Patient should continue monthly self-breast exams. A clinical breast exam by your physician is recommended on an annual basis. This exam should not preclude additional follow-up of suspicious palpable abnormalities. Note on Dorothy scores and lifetime risk: 1. A Dorothy score greater than 3% is considered moderate risk. If this is the case, consider specialist referral to assess eligibility for a risk reducing agent. 2. If overall lifetime risk for the development of breast cancer is 20% or higher, the patient may qualify for future screening with alternating mammogram and breast MRI. Electronically signed and approved by: Clive Crump M.D. Radiologis
== END | disposition home or self-care (01) ==
LOC: RADMAMWWP 07:47
PROVIDERS: ATTEND Obstetrics & Gynecology
DX: Z12.31 Encounter for screening mammogram for malignant neoplasm of breast (principal)
CPT/HCPCS: 77063; 77067

== ENCOUNTER → 2025-01-29 | Outpatient (CLI) | payer BC ==
--- NOTE | 2025-01-29 20:18 | MR ---
MRI CERVICAL SPINE: CLINICAL HISTORY: Spondylosis without myelopathy. Headache with neck pain and stiffness and diminishe d motion for one year. TECHNIQUE: Multiplanar, multisequence imaging of the cervical spine is performed without and with IV contrast, 6.5 cc of gadolinium was given intravenously. COMPARISON: Same day CT cervical spine. FINDINGS: Sagittal images of the cervical spine show the craniocervical junction to appear within nor mal limits. The cervical and upper thoracic spinal cord is normal in caliber and signal. Persistent loss of normal cervical curvature with subtle grade 1 anterolisthesis C4 on C5 and grade 1 retrolisth esis C5 on C6 and to lesser degree C6 on C7. The vertebral body heights are normal. Mild to moderate disc space narrowing with heterogeneous Modic type I endplate changes at C5-C6 level are seen. No valentine spicious postcontrast enhancement is seen.. Axial images show C2-C3 level to appear within Normal limits. Axial images at C3-C4 level show uncove rtebral facet degenerative changes bilaterally but the bilateral neural foramina remain patent. Axial images at C4-C5 level shows subtle spondylolisthesis with tiny central disc protrusion minimall y effacing the anterior thecal sac and some bilateral uncovertebral facet degenerative change causing mild left-sided neural foraminal narrowing. Axial images at C5-C6 level shows spondylosis with broad based left paracentral disc protrusion effac ing anterior thecal sac nearly up to ventral surface of cervical spinal cord and some marginal spurri ng causing mild to moderate left greater than right bilateral neural foraminal narrowing Axial images at C6-C7 level showed broad based left paracentral disc protrusion effacing the anterola teral thecal sac and [id number] bilateral neural foraminal narrowing. Axial images at C7-T1 level appear within normal limits. IMPRESSION: Multilevel spondylolisthesis and degenerative change in the cervical spine as detailed ab ove. [facility], , 01/29/2025 8:15 PM
--- NOTE | 2025-01-29 20:21 | CT ---
EXAMINATION TYPE: CT cervical spine wo con DATE OF EXAM: 01/29/2025 COMPARISON: Same day MRI cervical spine CLINICAL INDICATION: Female, 44 years old with history of M47.812 C SPONDYLOSIS W/O MYELOPATHY OR RAD ICULOPATHY, Spondylosis w/o myelopathy or radiculopathy, pain TECHNIQUE: CT scan of the cervical spine is obtained without contrast, axial images are obtained, sa gittal and coronal reformatted images are also reviewed. CT DLP: 567 mGycm. Automated Exposure Control for Dose Reduction was Utilized. Contrast: , patient injected with mL of ., (none if empty) FINDINGS: Cervical spine is visualized in its entirety from C1 through upper thoracic levels, demonst rates loss of normal cervical curvature with grade 1 anterolisthesis C4 on C5 and grade 1 retrolisthe sis C5 on C6 and to lesser degree C6 on C7. Prevertebral soft tissue appears within normal limits. The C1-C2 articulation is within normal limits on the coronal images. Vertebral body heights are main tained. Moderate disc space narrowing and spurring at C5-C6 level is present. Review of axial images shows multilevel uncovertebral facet degenerative changes bilaterally. Promine nt spur disc complex at C5-C6 level posterior disc herniation at C6-C7 level correlates with same day MRI. Thyroid gland is normal in size. Lung apices show no pneumothorax. IMPRESSION:. Normal cervical curvature with multilevel spondylolisthesis and degenerative change grea test in the mid to lower cervical spine seen as detailed above. [facility], , 01/29/2025 8:19 PM
== END | disposition home or self-care (01) ==
LOC: RADCTMAIN 17:03
PROVIDERS: ATTEND Orthopaedic Surgery
DX: M50.223 Other cervical disc displacement at C6-C7 level (principal); M47.812 Spondylosis without myelopathy or radiculopathy, cervical region; M43.12 Spondylolisthesis, cervical region
CPT/HCPCS: 72125; 72156; A9585

== ENCOUNTER → 2025-01-29 | Outpatient (CLI) | payer BC ==
--- NOTE | 2025-01-29 18:39 | CT ---
EXAMINATION TYPE: CT sinus wo con DATE OF EXAM: 01/29/2025 COMPARISON: NONE CLINICAL INDICATION: Female, 44 years old with history of J32.0 CHRONIC SINUSITIS, Chronic sinusitis, TECHNIQUE: CT scan of the sinuses performed without contrast, patient injected with mL of .(none if empty) CT DLP: 654 mGycm, Automated exposure control for dose reduction was used. TECHNIQUE: CT scan of the sinuses is performed without contrast, axial images are obtained, coronal r eformatted images are also reviewed. FINDINGS: Minimal mucosal thickening in the inferior right maxillary sinus. Mild to moderate mucosal thickening in inferior left maxillary sinus. There is 6 mm mucous retention cyst or polyp in the medi al wall left maxillary sinus axial image 20. No suspicious opacification or air-fluid levels on the r emainder of the paranasal sinuses The ostiomeatal complex is patent bilaterally on the coronal images . Nasal septum is slightly deviated to right of midline. Visualized portion of mastoid air cells show no abnormal opacification. The globes are intact bilate rally. Visualized brain parenchyma is unremarkable. IMPRESSION: Chronic maxillary sinus disease; no acute sinusitis. [facility], , 01/29/2025 6:37 PM
== END | disposition home or self-care (01) ==
LOC: RADCTMAIN 16:56
PROVIDERS: ATTEND Otolaryngology
DX: J32.0 Chronic maxillary sinusitis (principal)
CPT/HCPCS: 70486

== ENCOUNTER → 2025-01-31 | Outpatient (CLI) | payer BC ==
[2025-01-31 21:33] LABS: Alternaria alternata IgE <0.10 kU/L; Aspergillus fumagatus IgE <0.10 kU/L; Birch IgE <0.10 kU/L; Cat Epith & Dander IgE <0.10 kU/L; Cladosporian herbarum IgE <0.10 kU/L; Cockroach IgE <0.10 kU/L; Dermato. farinae IgE <0.10 kU/L; Dog Dander IgE <0.10 kU/L; Maple (Box Elder) IgE <0.10 kU/L; Oak IgE <0.10 kU/L; Ragweed,Common IgE <0.10 kU/L
[2025-02-01 14:17] LABS: Johnson Grass IgE Class CLASS 0; Timothy Grass IgE <0.10 kU/L (<0.10); Timothy Grass IgE Class CLASS 0
[2025-02-01 14:18] LABS: Rhizopus nigricans IgE <0.10 kU/L (<0.10); Rhizopus nigricans IgE Class CLASS 0
[2025-02-01 14:20] LABS: Aureo. pullulans IgE <0.10 kU/L (<0.10); Aureo. pullulans IgE Class CLASS 0
[2025-02-01 14:21] LABS: Epicoccum purpurascens Class CLASS 0; Epicoccum purpurascens IgE <0.10 kU/L (<0.10)
[2025-02-01 14:22] LABS: Candida albicans IgE Class CLASS 0; Mucor racemosus IgE <0.10 kU/L (<0.10); Mucor racemosus IgE Class CLASS 0
[2025-02-01 14:23] LABS: Com. Pigweed IgE <0.10 kU/L (<0.10); Com. Pigweed IgE Class CLASS 0; Cottonwood IgE <0.10 kU/L (<0.10); English Plantain IgE Class CLASS 0; Lamb's Quarter IgE <0.10 kU/L (<0.10); Lamb's Quarter IgE Class CLASS 0; S.rostrata/Helminth Class CLASS 0; S.rostrata/Helminth IgE <0.10 kU/L (<0.10); Sycamore(Mpl.Lf) IgE <0.10 kU/L (<0.10); Sycamore(Mpl.Lf) IgE Class CLASS 0; Walnut Tree IgE <0.10 kU/L (<0.10); Walnut Tree IgE Class CLASS 0; White Ash IgE Class CLASS 0
== END | disposition home or self-care (01) ==
LOC: LABWHC1 11:56
PROVIDERS: ATTEND Otolaryngology
DX: J30.89 Other allergic rhinitis (principal)
CPT/HCPCS: 36415; 82785; 86003

== ENCOUNTER → 2025-03-01 | Outpatient (CLI) | payer BC ==
--- NOTE | 2025-03-01 14:35 | MM ---
Reason for Exam: Screening (asymptomatic). Last mammogram was performed 1 year(s) and 2 month(s) ago. Patient History: Menarche at age 11. First Full-Term at age 16. Hormonal Contraceptives for 25 years from age 13 until age 38. 2008, Bilateral Implants. Risk Values: Dorothy 5 year model risk: 0.6%. NCI Lifetime model risk: 6.9%. Prior Study Comparison: 04/14/2022 Right MG 3D diag mammo imp w/cad RT, [facility]. 11/16/2022 Bilateral MG 3D diag mammo imp w/cad JULIETH, [facility]. 12/29/2023 Bilateral MG 3D screen mammo imp/cad., [facility]. Tissue Density: The breasts are heterogeneously dense, which may obscure small masses. Findings: Analyzed By CAD. Bilateral breast implants appear intact. Right breast: There is no suspicious group of microcalcifications or new suspicious mass. Left breast: There is no suspicious group of microcalcifications or new suspicious mass. Overall Assessment: Negative, BI-RAD 1 Management: Screening Mammogram of both breasts in [address] [facility] will attempt to contact patient to return for supplemental views and ultrasound if indicated. Patient should continue monthly self-breast exams. A clinical breast exam by your physician is recommended on an annual basis. This exam should not preclude additional follow-up of suspicious palpable abnormalities. Note on Dorothy scores and lifetime risk: 1. A Dorothy score greater than 3% is considered moderate risk. If this is the case, consider specialist referral to assess eligibility for a risk reducing agent. 2. If overall lifetime risk for the development of breast cancer is 20% or higher, the patient may qualify for future screening with alternating mammogram and breast MRI. [facility], , 03/01/2025 2:32 PM. Electronically signed and approved by: Raghu Mcgrath DO
== END | disposition home or self-care (01) ==
LOC: RADMAMWWP 13:48
PROVIDERS: ATTEND Family Medicine
DX: Z12.31 Encounter for screening mammogram for malignant neoplasm of breast (principal); R92.333 Mammographic heterogeneous density, bilateral breasts; Z98.82 Breast implant status; Z92.0 Personal history of contraception
CPT/HCPCS: 77063; 77067

== ENCOUNTER 2025-03-07 07:38 | Day surgery (SDC) | payer BC ==
[~2025-03-07 07:38] MED LIST changes: +HYDROmorphone 0.5 MG/0.5 ML SYRINGE IVP PRN; -LACTATED RINGERS 1,000 ML IV SCH; +SCOPOLAMINE 1 MG/72 HR PATCH TRANSDERM ONE; +fentaNYL (PF) 50 MCG/ML 2 ML AMP IV PRN
[2025-03-07] MEDS: OXYMETAZOLINE 0.05% NASL SPRAY 1 SPRAY BOTTLE EA NOSTRIL PRN (08:04)
[2025-03-07] MEDS: IV FLUID CONTINUATION 1,000 ML IV ONE (08:10)
[2025-03-07] MEDS: ONDANSETRON 4 MG/2 ML VIAL IVP ONE (08:12)
[2025-03-07] MEDS: DEXAMETHASONE SOD PHOSPHATE 4 MG/ML 1 ML VIAL IV ONE (08:12)
[2025-03-07] MEDS: FAMOTIDINE 20 MG/2 ML VIAL IV PRN (08:12)
[2025-03-07] MEDS: LACTATED RINGERS 1,000 ML IV SCH (08:13)
[2025-03-07] MEDS ORDERED: SUCCINYLCHOLINE CHLORIDE 200 MG/10 ML VIAL IV ONE (08:40)
[2025-03-07] MEDS ORDERED: PROPOFOL 10 MG/ML 20 ML VIAL IV ONE (08:40)
[2025-03-07] MEDS ORDERED: ROCURONIUM 10 MG/ML (5 ML VIAL) IV ONE (08:40)
[2025-03-07] MEDS ORDERED: MIDAZOLAM 2 MG/2 ML VIAL ONE (08:40)
[2025-03-07] MEDS ORDERED: PHENYLEPHRINE-0.9% NACL SYG 1,000 MCG/10 ML SYRINGE ONE (08:40)
[2025-03-07] MEDS ORDERED: LIDOCAINE 4% LTA KIT (4 ML) TOPICAL ONE (08:40)
[2025-03-07] MEDS ORDERED: LIDOCAINE 1% INJ 10MG/ML (20 ML MDV) ONE (08:40)
[2025-03-07] MEDS ORDERED: fentaNYL (PF) 50 MCG/ML 2 ML AMP ONE (08:40)
[2025-03-07] MEDS ORDERED: LABETALOL 5 MG/ML VIAL MDV ONE (08:40)
[2025-03-07] MEDS: ceFAZolin 2 GM in DEXTROSE 5% IN WATER 50 ML IVPB PRN (08:43)
[2025-03-07] MEDS: LIDOCAINE 1%-EPI 1:100,000 20 ML VIAL SUBMUCOSAL ONE ×2 (08:57)
[2025-03-07] MEDS: BACITRACIN ZINC 500 UNIT/GM OINT 28.4 GM TUBE TOPICAL ONE ×2 (09:03→09:35)
--- NOTE | 2025-03-07 09:44 | P.OP ---
Date of Procedure: 03/07/25 Preoperative Diagnosis: deviated nasal septum Inferior turbinate hypertrophy Chronic sinusitis Postoperative Diagnosis: same Procedure(s) Performed: septoplasty Outfractured and submucous resection of the inferior turbinates Bilateral endoscopic sinus surgery including bilateral maxillary antrostomy with removal of tissue from maxillary sinuses, left oleg bullectomy,bilateral partial anterior ethmoidectomy/ethmoid bullectomy Anesthesia: JOAN Surgeon: Eladio Arriaza Estimated Blood Loss (ml): 5 Pathology: other (nasal septal bone and cartilage and sinus contents) Condition: stable Disposition: PACU Indications for Procedure: This is a 44 show white female whose had difficulties with chronic nasal airway obstruction congestion and recurrent/chronic sinusitis Operative Findings: nasal septum deviated to the right with inferior turbinate hypertrophy bilateral, obstruction of the ostiomeatal complexes bilaterally with cysts in the maxillary sinuses and left oleg bullosa cell, ethmoid bulla were overhanging and obstructing the middle meatus and therefore were also opened with partial anterior ethmoidectomy Description of Procedure: The patient was brought into the operative suite and placed in a supine position. The patient underwent induction of general anesthesia with oral endotracheal intubation without difficulty. The patient was prepped and draped in the usual aseptic fashion with the orbits in the operating field for monitoring to the case and the computed tomography scan was on the computer screen for review throughout the case. 1% lidocaine with 1 :100,000 epinephrine was infused submucosally into both sides of the nasal septum as well as the lateral nasal wall and anterior tips of the middle turbinates. While this was taking vasoconstrictive effect the inferior turbinates were infractured with Dickson elevator and partial submucous resection of the inferior turbinates was performed with a portion of the submucosal soft tissue and the inferior turbinate bone removed with Coblation device. The inferior turbinates were then outfractured with the Dickson elevator. A left hemitransfixion incision was then made with the mucoperichondrial and mucoperiosteal flap on the left elevated. The bony cartilaginous junction was disarticulated and the mucoperiosteal flap on the right was elevated. Bony nasal septal deformities were removed with Arin forceps and an inferior cartilaginous strip was removed leaving a full 1.5 cm caudal strut. Checking intranasally this corrected the nasoseptal deformities and the hemitransfixion incision was closed with a running 4-0 chromic suture. Full 0° endoscopic examination is performed bilaterally. Beginning on the left, the middle turbinate was medialized. The maxillary ostium was located with a ballpoint probe and an infundibulotomy was performed followed by uncinectomy. The maxillary antrostomy was enlarged at the expense of the anterior and posterior fontanelle taking care anteriorly not to injure the lacrimal bone. The maxillary sinus was evaluated with 30 and 70° endoscope .[Abnormal appearing tissue was removed from the maxillary sinus]. the ethmoid bulla was overhanging and therefore partial anterior ethmoidectomy was performed with microdebrider. left oleg bullectomy was also performed opening the lateral aspect of the middle turbinate and removing the lateral half with the microdebrider. There was some mucoid fluid within the oleg bullosa cell also. Attention was then turned to the right where the procedures were followed as they had been on the left, including medialization middle turbinate infundibulotomy uncinectomy maxillary antrostomy with removal of tissue from maxillary sinus and partial anterior ethmoidectomy. [Nasopore nasal dressing was placed in the middle meatus bilaterally under direct visualization]. Bilateral [place] airway splints coated with bacitracin ointment were placed and sutured transseptally with a 4-0 nylon suture. The patient was suctioned in oral gastric fashion and was allowed to emerge from general anesthesia having tolerated procedure well and was extubated in the operating suite and transferred to the postoperative recovery area in satisfactory condition.
[2025-03-07 09:55] VITALS: TEMP 96.9
[2025-03-07 10:19] VITALS: RESP 16
[2025-03-07 11:10] VITALS: BP 145/83; PULSE 70
== END 2025-03-07 11:27 | disposition home or self-care (01) ==
LOC: OR 07:38
PROVIDERS: ATTEND Otolaryngology
DX: J34.2 Deviated nasal septum (principal); J34.3 Hypertrophy of nasal turbinates; J32.0 Chronic maxillary sinusitis; F41.9 Anxiety disorder, unspecified; M19.90 Unspecified osteoarthritis, unspecified site; M79.7 Fibromyalgia; Z79.899 Other long term (current) drug therapy
CPT/HCPCS: 30520; 30140; 31267; 31254; 31240; 88305; 88300; J2250; J0330; J1100; J0690; J2405; J2003; J3010; J2704; J2371; J1920; J1308